=== PATIENT | female | born 1985 | race Hispanic/Latino ===

== ENCOUNTER 2021-07-06 19:37 | Inpatient (IN) | payer MEDICAID ==
[~2021-07-06] VITALS: Ht 157.5 cm; Wt 93.0 kg
[2021-07-06] MEDS ORDERED: LACTATED RINGERS 1000ML 1,000 ML IV PRN (20:00)
[2021-07-06] MEDS ORDERED: LACTATED RINGERS 500 ML 500 ML IV PRN (20:00)
[2021-07-06] MEDS ORDERED: NALOXONE HCL 0.4 MG/1 ML ML IV PRN (20:00)
[2021-07-06] MEDS ORDERED: ROPIVACAINE 0.2% 100ML VIAL 100 ML EP PRN (20:00)
[2021-07-06] MEDS ORDERED: MEPERIDINE-PF 50 MG/ML SYG IVP PRN (20:00)
[2021-07-06] MEDS ORDERED: PROMETHAZINE HCL 25 MG/ML 1ML AMPULE IM PRN (20:00)
[2021-07-06] MEDS ORDERED: EPHEDRINE SULFATE 50 MG/ML AMPULE IVP PRN (20:00)
[2021-07-06 20:52] LABS: APPEARANCE,URINE Cloudy (CLEAR); BILIRUBIN,URINE Negative (NEGATIVE); COLOR,URINE Yellow (YELLOW); GLUCOSE, URINE (UA) Negative (NEGATIVE); KETONES,URINE Negative (NEGATIVE); LEUKOCYTE ESTERASE ,URINE Trace (NEGATIVE); NITRATE,URINE Negative (NEGATIVE); OCCULT BLOOD,URINE Small (NEGATIVE); PH,URINE 6.5 (5.0-8.0); PROTEIN,URINE Negative (NEGATIVE)
[2021-07-06 21:01] LABS: HEMATOCRIT 36.9 % (36-48); MEAN CORPUSCULAR HEMOGLOBIN 28.5 pg (27.0-33.0); MEAN CORPUSCULAR HGB CONC 34.1 g/dL (32.0-36.0); MEAN CORPUSCULAR VOLUME 83.5 fL (79-99); RED BLOOD CELL COUNT(AUTO) 4.42 MIL/uL (4.00-5.50); RED CELL DISTRIBUTION WIDTH 13.6 % (11.0-15.5); WHITE BLOOD COUNT (AUTO) 8.7 K/uL (4.8-10.8)
[2021-07-06 21:02] LABS: BACTERIA,URINE Few /HPF (None Seen); SQUAMOUS EPITHELIAL CELL,UR Moderate /HPF (0-2)
[2021-07-07] MEDS ORDERED: OXYTOCIN-LR 20 UNITS/1000 ML 1,000 ML IV SCH ×2 (04:00→11:30)
[2021-07-07] MEDS ORDERED: LIDOCAINE HCL 1% 20 ML VIAL ONE (10:53)
[2021-07-07] MEDS ORDERED: LANOLIN 30GM OINTMENT TP PRN (11:30)
[2021-07-07] MEDS ORDERED: BENZOCAINE/LANOLIN/ALOE VERA 60 ML AEROSOL TP PRN (11:30)
[2021-07-07] MEDS ORDERED: DIPH,PERTUSS(ACELL),TET VAC/PF 0.5 ML VIAL IM PRN (11:30)
[2021-07-07] MEDS ORDERED: WITCH HAZEL 1 PAD TP PRN (11:30)
[2021-07-07] MEDS ORDERED: ACETAMINOPHEN WITH CODEINE 1 TAB TAB PO PRN (11:30)
[2021-07-07] MEDS ORDERED: MEASLES/MUMPS/RUBELLA VACCINE, LIVE 0.5 ML/VIAL SQ PRN (11:30)
[2021-07-07] MEDS ORDERED: ACETAMINOPHEN 325 MG TAB PO PRN (11:30)
[2021-07-07] MEDS: OXYTOCIN-LR 20 UNITS/1000 ML 1,000 ML IV SCH ×2 (12:19→20:00)
[2021-07-07] MEDS ORDERED: PREN-154 PO (14:52)
[2021-07-07 15:02] VITALS: BP 125/72
[2021-07-07] MEDS: IBUPROFEN 600 MG TABLET PO PRN ×2 (15:09→22:00)
[2021-07-07 19:08] VITALS: BP 117/64
[2021-07-07] MEDS: DOCUSATE SODIUM 100 MG CAP PO SCH (21:26)
[2021-07-07 22:50] VITALS: BP 126/78
[2021-07-08 03:08] VITALS: BP 119/76
[2021-07-08] MEDS: IBUPROFEN 600 MG TABLET PO PRN ×2 (04:06→10:38)
[2021-07-08 06:12] LABS: HEPATITIS Bs ANTIGEN SCREEN P Negative (Negative)
[2021-07-08 07:09] LABS: HEMATOCRIT 34.5 % (36-48); MEAN CORPUSCULAR HEMOGLOBIN 28.1 pg (27.0-33.0); MEAN CORPUSCULAR HGB CONC 31.9 g/dL (32.0-36.0); MEAN CORPUSCULAR VOLUME 88.2 fL (79-99); RED BLOOD CELL COUNT(AUTO) 3.91 MIL/uL (4.00-5.50); RED CELL DISTRIBUTION WIDTH 13.8 % (11.0-15.5)
[2021-07-08 07:24] VITALS: BP 92/57
[2021-07-08] MEDS: DOCUSATE SODIUM 100 MG CAP PO SCH (10:37)
[2021-07-08] MEDS ORDERED: IBUP-2071 PO (11:02)
[2021-07-08] MEDS ORDERED: DOCU-116 PO (11:03)
[2021-07-08 11:45] VITALS: BP 128/84
== END 2021-07-08 15:10 | disposition home or self-care (01) | DRG 560 ==
LOC: LDH 19:37 → WSH 07-07 14:39
PROVIDERS: ADMIT Obstetrics & Gynecology; ATTEND Obstetrics & Gynecology
PROC: 10E0XZZ Delivery of Products of Conception, External Approach (ICD-10-PCS; principal; 2021-07-07)
DX: O42.92 Full-term premature rupture of membranes, unspecified as to length of time between rupture and onset of labor (principal); O71.82 Other specified trauma to perineum and vulva; Z37.0 Single live birth; Z3A.39 39 weeks gestation of pregnancy
CPT/HCPCS: 36415; 81001; 85027; 86592; 86850; 86900; 86901; 87340; A4351; G0378; J2175; J2550; J2590